=== PATIENT | female | born 1945 | race Caucasian/White ===

== ENCOUNTER 2021-09-25 09:41 | Emergency (ER) | payer OTHER ==
[2021-09-25 10:36] LABS: Absolute Lymphocytes (CBC) 1.4 K/uL (0.7-4.9); Hematocrit 31.6 % (36.0-45.0); Lymphocytes % 20.1 % (15.3-44.8); MPV 9.3 fL (7.6-11.3); RBC Red Blood Cell Count 3.62 M/uL (3.86-4.86)
[2021-09-25 10:53] LABS: Protime INR 0.96
[2021-09-25 10:55] LABS: Potassium 4.4 mmol/L (3.5-5.1); Troponin High Sensitivity 7.2 pg/mL (<58.9)
--- NOTE | 2021-09-25 11:38 | RAD REPORT ---
EXAM DESCRIPTION: US - Extremity Venous Uni Ltd - 09/25/2021 11:31 am CLINICAL HISTORY: Swelling COMPARISON: None. TECHNIQUE: Real-time sonographic evaluation of the right lower extremity deep venous system was perf ormed. FINDINGS: Normal compressibility, flow augmentation, phasic flow and spontaneous flow is identified in the right lower extremity deep venous system. No intraluminal filling defects seen. IMPRESSION: No DVT in the right lower extremity.
--- NOTE | 2021-09-25 12:50 | ER ---
Nurse's Notes [facility] Name: Amanda Connor Age: 75 yrs Sex: Female : 1945 Arrival Date: 09/25/2021 Time: 09:46 Bed 23 Private MD: Diagnosis: Gout, unspecified Presentation: 09/25 09:47 Chief complaint: Patient states: right ankle has been swollen and painful for a week iw and its warm to the touch, traveled on airplane on 09-12, was sent by Dr. Ralph office to r/o DVT. Coronavirus screen: At this time, the client does not indicate any symptoms associated with coronavirus-19. Ebola Screen: Patient negative for fever greater than or equal to 101.5 degrees Fahrenheit, and additional compatible Ebola Virus Disease symptoms Patient denies exposure to infectious person. Patient denies travel to an Ebola-affected area in the 21 days before illness onset. No symptoms or risks identified at this time. Initial Sepsis Screen: Does the patient meet any 2 criteria? No. Patient's initial sepsis screen is negative. Does the patient have a suspected source of infection? No. Patient's initial sepsis screen is negative. Risk Assessment: Do you want to hurt yourself or someone else? Patient reports no desire to harm self or others. Onset of symptoms was September 14, 2021. 09:47 Method Of Arrival: Ambulatory iw 09:47 Acuity: MARLENI 3 iw Historical: - Allergies: 09:48 Aspirin; iw 09:48 PENICILLINS; iw 09:48 Sulfa (Sulfonamide Antibiotics); iw - PMHx: 09:48 Hypercholesterolemia; Hypertensive disorder; iw - PSHx: 09:48 Tonsillectomy; iw - Immunization history:: Client reports receiving the 2nd dose of the Covid vaccine. - Social history:: Smoking status: Patient/guardian denies using tobacco, but has a distant history of tobacco abuse. Screenin:58 Abuse screen: Denies threats or abuse. Denies injuries from another. Nutritional ab2 screening: No deficits noted. Tuberculosis screening: No symptoms or risk factors identified. Fall Risk None identified. Assessment: 09:56 General: Appears in no apparent distress. uncomfortable, Behavior is calm, cooperative, ab2 appropriate for age. Pain: Complains of pain in right foot and right leg Pain currently is 10 out of 10 on a pain scale. Neuro: Level of Consciousness is awake, alert, obeys commands, Oriented to person, place, time, situation, Appropriate for age Manager Maintenance are equal bilaterally Moves all extremities. Gait is steady, Speech is normal, Facial symmetry appears normal, Intact. Cardiovascular: No deficits noted. Denies chest pain, shortness of breath, Heart tones S1 S2 present Patient's skin is warm and dry. Respiratory: Airway is patent Respiratory effort is even, unlabored, Respiratory pattern is regular, symmetrical, Breath sounds are clear bilaterally. GI: No deficits noted. Abdomen is flat, non-distended, Bowel sounds present X 4 quads. Abd is soft and non tender. : No deficits noted. No signs and/or symptoms were reported regarding the genitourinary system. EENT: No deficits noted. No signs and/or symptoms were reported regarding the EENT system. Derm:. Musculoskeletal: Range of motion: intact in all extremities, Swelling present in right ankle right ankle is warm to touch Reports pain in right foot. 12:05 Reassessment: Patient appears in no apparent distress at this time. No changes from ab2 previously documented assessment. Pt ambulated to bathroom with no assistance. Awaiting results for disposition. Pt given ice water per request. Denies any needs at this time. Vital Signs: 09:47 BP 175 / 78; Pulse 74; Resp 16; Pulse Ox 100% on R/A; Weight 56.25 kg; Height 5 ft. 1 iw in. (154.94 cm); 10:04 BP 169 / 63; Pulse 70; Resp 16; Pulse Ox 100% on R/A; Pain 10/10; ab2 12:02 BP 168 / 65; Pulse 67; Resp 16; Pulse Ox 100% on R/A; ab2 13:01 BP 159 / 69; Pulse 70; Resp 16; Pulse Ox 98% on R/A; ab2 09:47 Body Mass Index 23.43 (56.25 kg, 154.94 cm) iw ED Course: 09:46 Patient arrived in ED. iw 09:48 Triage completed. iw 09:49 Arm band placed on. iw 09:52 Rupert Davalos MD is Attending Physician. sp3 09:56 Linwood Chavez is Primary Nurse. ab2 09:58 Patient has correct armband on for positive identification. Bed in low position. Call ab2 light in reach. Side rails up X2. Pulse ox on. NIBP on. 09:58 No provider procedures requiring assistance completed. ab2 10:28 Inserted saline lock: 20 gauge in left antecubital area, using aseptic technique. Blood ab2 collected. 10:28 Basic Metabolic Panel Sent. ab2 10:28 CBC with Diff Sent. ab2 10:29 NT PRO-BNP Sent. ab2 10:29 PT-INR Sent. ab2 10:29 Troponin HS Sent. ab2 11:33 US Extremity Venous Unilateral Ltd In Process Unspecified. EDMS 13:01 IV discontinued, intact, bleeding controlled, No redness/swelling at site. Pressure ab2 dressing applied. Administered Medications: No medications were administered Outcome: 12:49 Discharge ordered by . sp3 13:01 Discharged to home ambulatory. ab2 13:01 Condition: good 13:01 Discharge instructions given to patient, Instructed on discharge instructions, follow up and referral plans. medication usage, Demonstrated understanding of instructions, follow-up care, medications, Prescriptions given X 2. 13:01 Patient left the ED. ab2 Signatures: Dispatcher [employer] Zarina Shankar, RN RN Rupert Chou MD MD sp3 Linwood Chavez ab2
--- NOTE | 2021-09-25 12:50 | EDPHYS ---
Physician Documentation [facility] Name: Amanda Connor Age: 75 yrs Sex: Female : 1945 Arrival Date: 09/25/2021 Time: 09:46 Bed 23 Private MD: ED Physician Rupert Davalos HPI: 09/25 10:14 This 75 yrs old Female presents to ER via Ambulatory with complaints of Ankle Swelling. sp3 10:14 75-year-old female with history of hyperlipidemia and hypertension presents to the ED sp3 referred from her PCP Dr. Manuel's office for evaluation of right lower extremity swelling. Patient was on a flight from [place] to [place] on September 12 after which her symptoms started. Patient states she has swelling from her knee down on the right side along with posterior calf pain. She denies chest pain, shortness of breath, back pain, or any other symptoms on ROS at this time. She also denies any trauma in the immediate past.. Historical: - Allergies: 09:48 Aspirin; iw 09:48 PENICILLINS; iw 09:48 Sulfa (Sulfonamide Antibiotics); iw - PMHx: 09:48 Hypercholesterolemia; Hypertensive disorder; iw - PSHx: 09:48 Tonsillectomy; iw - Immunization history:: Client reports receiving the 2nd dose of the Covid vaccine. - Social history:: Smoking status: Patient/guardian denies using tobacco, but has a distant history of tobacco abuse. ROS: 10:17 Constitutional: Negative for fever, chills, and weight loss, Eyes: Negative for injury, sp3 pain, redness, and discharge, ENT: Negative for injury, pain, and discharge, Neck: Negative for injury, pain, and swelling, Cardiovascular: Negative for chest pain, palpitations, and edema, Respiratory: Negative for shortness of breath, cough, wheezing, and pleuritic chest pain, Abdomen/GI: Negative for abdominal pain, nausea, vomiting, diarrhea, and constipation, Back: Negative for injury and pain, Neuro: Negative for headache, weakness, numbness, tingling, and seizure, Psych: Negative for depression, anxiety, suicide ideation, homicidal ideation, and hallucinations, Allergy/Immunology: Negative for hives, rash, and allergies, Endocrine: Negative for neck swelling, polydipsia, polyuria, polyphagia, and marked weight changes. 10:17 All other systems are negative. Exam: 10:18 Constitutional: This is a well developed, well nourished patient who is awake, alert, sp3 and in no acute distress. Head/Face: Normocephalic, atraumatic. Eyes: Pupils equal round and reactive to light, extra-ocular motions intact. Lids and lashes normal. Conjunctiva and sclera are non-icteric and not injected. Cornea within normal limits. Periorbital areas with no swelling, redness, or edema. ENT: Nares patent. No nasal discharge, no septal abnormalities noted. External auditory canals are clear. Oropharynx with no redness, swelling, or masses, exudates, or evidence of obstruction, uvula midline. Mucous membranes moist. Neck: Trachea midline, no thyromegaly or masses palpated, and no cervical lymphadenopathy. Supple, full range of motion without nuchal rigidity, or vertebral point tenderness. No Meningismus. Chest/axilla: Normal chest wall appearance and motion. Nontender with no deformity. No lesions are appreciated. Cardiovascular: Regular rate and rhythm with a normal S1 and S2. No gallops, murmurs, or rubs. Normal PMI, no JVD. No pulse deficits. Respiratory: Lungs have equal breath sounds bilaterally, clear to auscultation and percussion. No rales, rhonchi or wheezes noted. No increased work of breathing, no retractions or nasal flaring. Abdomen/GI: Soft, non-tender, with normal bowel sounds. No distension or tympany. No guarding or rebound. No evidence of tenderness throughout. Back: No spinal tenderness. No costovertebral tenderness. Full range of motion. Skin: Warm, dry with normal turgor. Normal color with no rashes, no lesions, and no evidence of cellulitis. Neuro: Awake and alert, GCS 15, oriented to person, place, time, and situation. Cranial nerves II-XII grossly intact. Motor strength 5/5 in all extremities. Sensory grossly intact. Cerebellar exam normal. Normal gait. Psych: Awake, alert, with orientation to person, place and time. Behavior, mood, and affect are within normal limits. 10:18 Musculoskeletal/extremity: As 3+ edema calf down along with posterior calf pain on the right side. Distal neurovascular exam in the foot is normal.. Vital Signs: 09:47 BP 175 / 78; Pulse 74; Resp 16; Pulse Ox 100% on R/A; Weight 56.25 kg; Height 5 ft. 1 iw in. (154.94 cm); 10:04 BP 169 / 63; Pulse 70; Resp 16; Pulse Ox 100% on R/A; Pain 10/10; ab2 12:02 BP 168 / 65; Pulse 67; Resp 16; Pulse Ox 100% on R/A; ab2 13:01 BP 159 / 69; Pulse 70; Resp 16; Pulse Ox 98% on R/A; ab2 09:47 Body Mass Index 23.43 (56.25 kg, 154.94 cm) iw MDM: 10:08 Patient medically screened. sp3 10:19 Data reviewed: vital signs, nurses notes. ED course: Is high probability for DVT in the sp3 right lower extremity. Ultrasound is pending and disposition will go based on that finding.. 12:48 ED course: DVT study is negative. I have added a uric acid level came back mildly sp3 elevated at 6.5. We will discharge patient home on colchicine and NSAID.. 09/25 10:20 Order name: Basic Metabolic Panel; Complete Time: 11:38 sp3 09/25 10:20 Order name: CBC with Diff; Complete Time: 11:38 sp3 09/25 10:20 Order name: NT PRO-BNP; Complete Time: 11:38 sp3 09/25 10:20 Order name: PT-INR; Complete Time: 11:38 sp3 09/25 10:20 Order name: Troponin HS; Complete Time: 11:38 sp3 09/25 12:27 Order name: Uric Acid sp3 09/25 10:08 Order name: US Extremity Venous Unilateral Ltd; Complete Time: 12:22 sp3 09/25 10:20 Order name: EKG; Complete Time: 10:21 sp3 09/25 10:20 Order name: IV Saline Lock; Complete Time: 10:28 sp3 09/25 10:20 Order name: Labs collected and sent; Complete Time: 10:28 sp3 Administered Medications: No medications were administered Disposition Summary: 09/25/21 12:49 Discharge Ordered Location: Home sp3 Condition: Stable sp3 Diagnosis - Gout, unspecified sp3 Followup: sp3 - With: Private Physician - When: Upon discharge from the Emergency Department - Reason: Re-evaluation by your physician Discharge Instructions: - Discharge Summary Sheet sp3 - Gout sp3 - Low-Purine Eating Plan sp3 Forms: - Medication Reconciliation Form sp3 - Thank You Letter sp3 - Antibiotic Education sp3 - Prescription Opioid Use sp3 Prescriptions: - COLCHICINE - take 0.6 milligram by ORAL route every 1-2 hours for 1 day Take one tab by sp3 mouth and repeat in one hour if not improved.; 10 tablet; Refills: 0, Product Selection Permitted - Diclofenac Sodium 75 mg Oral Tablet Sustained Release - take 1 tablet by ORAL route 2 times per day; 30 tablet; Refills: 0, Product sp3 Selection Permitted Signatures: Dispatcher [employer] Zarina Shankar RN RN iw Patel, Setul, MD MD sp3
[2021-09-25 13:43] VITALS: BP 159/69; O2SAT 98
== END 2021-09-25 13:01 | disposition home or self-care (01) ==
LOC: ER 09:41
DX: M10.9 Gout, unspecified (principal); E78.00 Pure hypercholesterolemia, unspecified; I10 Essential (primary) hypertension; Z88.0 Allergy status to penicillin; Z88.2 Allergy status to sulfonamides; Z88.6 Allergy status to analgesic agent
CPT/HCPCS: 36415; 80048; 83880; 84484; 84550; 85025; 85610; 93971; 99284

== ENCOUNTER 2022-10-27 07:34 | Day surgery (SDC) | payer OTHER ==
[2022-10-27 08:21] LABS: Absolute Lymphocytes (CBC) 0.8 K/uL (0.7-4.9); Hematocrit 26.2 % (36.0-45.0); Lymphocytes % 17.8 % (15.3-44.8); RBC Red Blood Cell Count 2.91 M/uL (3.86-4.86)
[2022-10-27 08:38] LABS: Albumin 3.4 g/dL (3.4-5.0); Bilirubin Direct 0.1 mg/dL (0-0.2); Bilirubin Indirect, Calculated 0.4 mg/dL (0.2-0.8); Bilirubin Total 0.5 mg/dL (0.2-1.0); Potassium 4.1 mEq/L (3.5-5.1); Protein, Total 6.9 g/dL (6.4-8.2)
[2022-10-27] MEDS ORDERED: Ringers Lactate 1,000 ML IV ONE (08:45)
[2022-10-27] MEDS ORDERED: CEFOXITIN SODIUM 1 GM/VIAL ONE (08:45)
--- NOTE | 2022-10-27 09:10 | RAD REPORT ---
EXAM DESCRIPTION: RAD - Chest Pa And Lat (2 Views) - 10/27/2022 8:40 am CLINICAL HISTORY: PREOP Chest pain. COMPARISON: Chest Pa And Lat (2 Views) dated 09/09/2015 TECHNIQUE: PA and lateral views of the chest were obtained. FINDINGS: The lungs are hyperexpanded compatible with COPD. The heart is upper limit of normal in si ze. No fracture or aggressive bony process. IMPRESSION: COPD without acute process identified. The USPSTF recommends annual screening for lung cancer with low-dose CT (LDCT) in adults aged 50 to 80 years who have a 20 pack-year smoking history and currently smoke or have quit within the past 15 years.
[2022-10-27] MEDS ORDERED: propofoL 200 MG/20 ML VIAL IV ONE (09:47)
[2022-10-27] MEDS ORDERED: ROCURONIUM 50 MG/5 ML VIAL IV ONE (09:47)
[2022-10-27] MEDS ORDERED: ONDANSETRON 4 MG/2 ML VIAL ONE (09:47)
[2022-10-27] MEDS ORDERED: LIDOCAINE 2% MPF 5 ML VIAL ONE (09:47)
[2022-10-27] MEDS ORDERED: FENTANYL CITR 100 MCG/2 ML ONE (09:47)
[2022-10-27] MEDS ORDERED: CIPROFLOXACIN 400mg IV 400 MG/200 ML BAG IV ONE (09:53)
[2022-10-27] MEDS ORDERED: NEOSTIGMINE 1 MG/ML -10 ML VIAL ONE (10:37)
[2022-10-27] MEDS ORDERED: GLYCOPYRROLATE 0.2 MG/ML SYR ONE (10:37)
[2022-10-27] MEDS ORDERED: Mastisol Adhesive Liq ONE (10:43)
--- NOTE | 2022-10-27 10:54 | P.BOP ---
Preoperative diagnosis: RUQ abd pain, acute cholecystitis, GB wall thickening, possible adenomyoma Postoperative diagnosis: same Primary procedure: Laparoscopic Cholecystectomy Remote Inpatient Coder: MANDI MALIK (PLANE TABLEMAN) Estimated blood loss: <10cc Specimen: gb Findings: as above Anesthesia: General Complications: None Transferred to: Recovery Room Condition: Good
[2022-10-27 11:19] VITALS: TEMP 97.1
[2022-10-27 11:47] VITALS: BP 129/55; O2SAT 99
--- NOTE | 2022-10-27 14:33 | EKG ---
Test Date: 2022-10-27 Test Time: 08:08:05 Wine Steward: JOIE MEASUREMENT RESULTS: Intervals: Rate: 66 WA: 136 QRSD: 78 QT: 382 QTc: 400 Webb: P: 75 WA: 136 QRS: 23 T: 20 INTERPRETIVE STATEMENTS: Normal sinus rhythm Normal ECG No previous ECG available for comparison Electronically Signed On 10-27-22 14:32:10 CDT by Ronald Florentino
--- NOTE | 2022-10-27 15:50 | DS ---
Date of Discharge: 10/27/2022 Diagnoses: Right upper quadrant abdominal pain, acute cholecystitis, gallbladder wall thickening, po ssible adenomyoma. Procedure: Laparoscopic cholecystectomy. Disposition: Home. Activity: As tolerated. No heavy lifting. Plan: Follow up in my office in 1 week. Call for appointment at [phone]. Keep area dry for 48 charles rs, then may shower. Keep Steri-Strips intact. ARMAAN/ALEX Voice ID: [id number] Report ID: [id number]
--- NOTE | 2022-10-27 16:05 | OP ---
Date of Procedure: 10/27/2022 Surgeon: Min Seay MD Machine Tech: Maryanne Street. Preoperative Diagnoses: Right upper quadrant abdominal pain, acute cholecystitis, gallbladder wall t hickening, possible adenomyoma. Postoperative Diagnoses: Right upper quadrant abdominal pain, acute cholecystitis, gallbladder wall thickening, possible adenomyoma. Procedure: Laparoscopic cholecystectomy. Estimated Blood Loss: Less than 10 mL. Anesthesia: General plus local. Indication: This is the case of a female, who comes to us with epigastric right upper quadrant pain radiating to the back, mainly postprandial. During the workup of the gallbladder, the patient was fo und to have a distended gallbladder and also thickening of that, not only it shows on the ultrasound, but also on the CAT scan. The possibility of a tumor versus adenomyoma was discussed with the patie nt by the primary doctor, sent to us for options. She comes with the idea that she wants the gallbla dder removed, not only because we cannot guarantee this is not a tumor in that area, but also because of her pain that goes consistent with biliary colic, so I explained to her the benefits, alternative s, and risks of laparoscopic possible open cholecystectomy, which include, but not limited to infecti on, bleeding, damage to adjacent structures, anesthesia complication, choledocholithiasis, bile leak, pancreatitis, UT, and even . She also understands this may not relieve any symptoms. She migh t need more than one surgical intervention. She understood and signed a consent. Procedure In Detail: The patient was brought to the operating room, placed in supine position. Anes thesia was done without complication. Abdominal area was prepped and draped in the usual sterile fas hion. Marcaine 0.5% was injected for local anesthetic followed by sharp incision of the skin in the periumbilical region. The incision was carried down to fascia, which was opened under direct vision. Peritoneum was encountered, opened under direct vision. Vicryl #1 placed inside the fascia. Hasso n trocar was carefully introduced. Pneumoperitoneum was obtained. I placed 3 more trocars, 5 mm eac h one of them, 1 epigastric area and 2 in the right upper quadrant using same technique, which was co nsisted of local anesthetic, sharp incision of the skin and introduction of the trocars under direct vision. This allowed me to put a grasper in the fundus of the gallbladder, another grasper in the in fundibulum retracting the gallbladder in the inferolateral fashion, exposing the triangle of Calot, a nd obtaining critical view. Cystic duct and cystic artery were clearly isolated, freed circumferenti ally and a connection between those and the gallbladder were clearly identified. I proceeded to liga te those by using at least 3 clips proximal, 1 clip distal, ligation in the middle. Same was done wi th the cystic artery. No bile leak. No bleeding. The gallbladder was removed from the liver using Bovie cauterizer and removed from abdominal cavity using EndoCatch through the umbilical incision. T he area was inspected once again. Gallbladder fossa was intact. We did not see any extraluminal mas ses that we can see. We did not see any masses in the liver neither. The patient tolerated the proc edure well. At that moment, I proceeded to remove trocars and pneumoperitoneum. Closed the fascia w ith #1 Vicryl. Irrigated subcutaneous tissue, closed that with 3-0 chromic and skin approximated wit h 3-0 chromic and Steri-Strips on top. Sponge count, instrument counts correct. The patient tolerat ed the procedure well. The patient was sent to the recovery in stable condition. ARMAAN/ALEX Voice ID: [id number] Report ID: [id number]
== END 2022-10-27 12:03 | disposition home or self-care (01) ==
LOC: OR 07:34
PROVIDERS: ATTEND Surgery
PROC: 0FT44ZZ Resection of Gallbladder, Percutaneous Endoscopic Approach (ICD-10-PCS; principal; 2022-10-27 10:30)
DX: K80.10 Calculus of gallbladder with chronic cholecystitis without obstruction (principal); R10.11 Right upper quadrant pain
CPT/HCPCS: 93005; 85025; 80048; 36415; 80076; 88304; 83690; 71046; 47562; J2704; J2710; J2001; J3010; J2405; J0744; J7120; J0694

== ENCOUNTER 2023-06-29 07:48 | Day surgery (SDC) | payer OTHER ==
[2023-06-29] MEDS ORDERED: NA CHLORIDE 0.9% 1,000 ML ONE (08:00)
[2023-06-29] MEDS ORDERED: MIDAZOLAM HCL 2 MG/2 ML INJ ONE (08:25)
[2023-06-29] MEDS ORDERED: NALOXONE HCL 2 MG/2 ML VIAL ONE (08:26)
[2023-06-29] MEDS ORDERED: FENTANYL CITR 100 MCG/2 ML ONE (08:26)
[2023-06-29 08:45] LABS: Protime INR 0.94
[2023-06-29 08:54] LABS: Absolute Lymphocytes (CBC) 1.2 K/uL (0.7-4.9); Hematocrit 31.7 % (36.0-45.0); Lymphocytes % 22.9 % (15.3-44.8); MCV 86.8 fL (80-100); MPV 9.6 fL (7.6-11.3); Platelets 262 thou/uL (152-406); RBC Red Blood Cell Count 3.65 M/uL (3.86-4.86)
[2023-06-29 10:23] LABS: Platelet Estimate ADEQ
[2023-06-29 10:24] LABS: Blood Morphology Comment NOT SEEN (NOT SEEN)
--- NOTE | 2023-06-29 10:59 | RAD REPORT ---
EXAM DESCRIPTION: - Bone Marrow Biopsy - 06/29/2023 10:06 am CLINICAL HISTORY: Bone Marrow Bx, C90.00 COMPARISON: No comparisons FINDINGS: Preoperative diagnosis: Multiple myeloma Post operative diagnosis: Same Conscious Sedation: 30 minutes of arck-eh-[id number] time. 0.5 milligram Versed, 25 mcg Fentanyl. Patient was continuously monitored by nursing staff. Contrast used: NONE Estimated blood loss: less than 5 mL Specimens: 11 gauge x 1 core specimen, approximately 12 mL marrow aspirate Postprocedure imaging demonstrated no complications. Samples were given to pathology for analysis. Th e patient tolerated the procedure without immediate complication and transferred to the recovery room in stable condition. IMPRESSION: Technically successful CT-guided bone marrow aspiration and core biopsy under conscious sedation. All CT scans are performed using dose optimization technique as appropriate and may include automated exposure control or mA/KV adjustment according to patient size.
[2023-06-29 12:04] VITALS: BP 180/61; TEMP 98; O2SAT 97; BMI 21.5
[2023-06-29 13:09] LABS: Cytogenetics, Bone Marrow SENT
== END 2023-06-29 11:05 | disposition home or self-care (01) ==
LOC: DS 07:48
PROVIDERS: ATTEND Internal Medicine Hematology & Oncology
PROC: 079T3ZX Drainage of Bone Marrow, Percutaneous Approach, Diagnostic (ICD-10-PCS; principal; 2023-06-29)
PROC: 07DT3ZX Extraction of Bone Marrow, Percutaneous Approach, Diagnostic (ICD-10-PCS; 2023-06-29)
DX: C90.00 Multiple myeloma not having achieved remission (principal); I10 Essential (primary) hypertension; N18.9 Chronic kidney disease, unspecified
CPT/HCPCS: 85025; 36415; 88313; 85610; 85044; 88305 ×2; 88311; 85730; 38221; 38222; J2250; J3010; J7030; J2310